=== PATIENT | female | born 1975 | race Caucasian/White ===

== ENCOUNTER 2018-10-30 20:21 | Emergency (ER) | payer OTHER ==
[2018-10-30] MEDS ORDERED: KETOROLAC 30 MG/ML 1 ML VIAL IVP ONE (21:26)
--- NOTE | 2018-10-30 21:26 | ED ---
Chest Pain HPI - General Chief Complaint: Chest Pain Stated Complaint: abnormal EKG Time Seen by Provider: 10/30/18 21:08 Source: patient Mode of arrival: ambulatory Limitations: no limitations - History of Present Illness Initial Comments: May is a 42-year-old female who presents to the emergency department today from urgent care for evaluation of 3 days of left-sided pleuritic chest pain as well as sore throat and a left-sided ankle pain. Patient reports that for about 2 week she's been experiencing a somewhat sore throat, she states at times she feels her throat gets itchy and then she feels the need to clear it. Patient reports this is been happening intermittently for nearly 2 weeks. Patient states nothing makes it better where she has no associated runny nose, cough or congestion. She reports it is not constant. Patient states over the past 3 days she's experienced some sharp stabbing left-sided chest pain that seems to be worse with movement or even inhalation. Pain is not associated with any shortness of breath cough or sputum production. Patient states that today she went to an urgent care at her primary care office, she was seen by nurse practitioner who reported that her EKG had an abnormality on associated come to the ER for further evaluation. Patient has no cardiac history, no family history of early cardiac disease, she is not a smoker, she has no history of hypertension or diabetes. She is here patient also wanted to note that she has left foot pain, patient reports she believes she is suffering from plantar fasciitis that she has tenderness to her heel which has been causing her walk awkwardly. Patient states because that she's been having some cramping in her left calf. Patient denies any history of DVT, PE known clotting disorder she denies any exogenous estrogen use any recent immobilization or long distance travel. Patient hasn't noticed any color changes or swelling to that foot. - Related Data Home Medications Medication Instructions Recorded Confirmed Turmeric Root Extract [Turmeric] 500 mg PO DAILY 06/06/15 10/30/18 Pnv No.95/Ferrous Fum/Folic AC 1 tab PO DAILY 10/30/18 10/30/18 [ Multivitamin Tablet] Allergies Allergy/AdvReac Type Severity Reaction Status Date / Time DYE AdvReac Unknown Uncoded 10/30/18 21:27 Review of Systems ROS Statement: Those systems with pertinent positive or pertinent negative responses have been documented in the HPI. ROS Other: All systems not noted in ROS Statement are negative. EKG Findings - EKG Comments: EKG Findings:: EKG was obtained due to complaining of left-sided chest pain, EKG was obtained at 2041, rate is 80 rhythm is sinus there is normal axis, there are normal intervals, NH 160, QRS 104, QTC is 447 there are no acute ST elevations or depressions are no evidence of acute ischemia or infarction. Past Medical History Additional Past Medical History / Comment(s): Lyme disease History of Any Multi-Drug Resistant Organisms: None Reported Past Surgical History: Appendectomy, Breast Surgery, Cholecystectomy, Hernia R epair, Tonsillectomy Additional Past Surgical History / Comment(s): Abd sx Past Psychological History: Anxiety, Depression, No Psychological Hx Reported Smoking Status: Former smoker Past Alcohol Use History: Occasional Past Drug Use History: Marijuana General Exam - General Exam Comments Initial Comments: Physical Exam GENERAL: Patient is well-developed and well-nourished. Patient is nontoxic and well- hydrated and is in no distress. HENT: Normocephalic, Atraumatic. Normal oropharynx, no obvious posterior oropharyngeal erythema, exudate or sores EYES: PERRL, EOMI PULMONARY: Unlabored respirations. No audible rales rhonchi or wheezing was noted. CARDIOVASCULAR: There is a regular rate and rhythm without any murmurs gallops or rubs. Warm and well perfused extremities, strong DP PT pulses bilaterally Lower extremity edema Homans sign negative ABDOMEN: Soft and nontender with normal bowel sounds. SKIN: Skin is clear with no lesions or rashes and otherwise unremarkable. : Deferred NEUROLOGIC: Patient is alert and oriented x3. Moving all extremities spontaneously MUSCULOSKELETAL: Normal extremities with adequate strength and full range of motion. No lower extremity swelling or edema. No calf tenderness. PSYCHIATRIC: Normal psychiatric evaluation. Limitations: no limitations Course Vital Signs 10/30/18 10/30/18 10/31/18 20:31 22:35 00:46 Temperature 98.4 F 98.6 F Pulse Rate 80 74 80 Respiratory 16 18 18 Rate Blood Pressure 132/98 130/85 180/90 O2 Sat by Pulse 98 98 98 Oximetry Chest Pain MDM - [facility] Patient was seen and evaluated, history is obtained from patient and signed patient seems to have 3 days of pleuritic left-sided chest pain, 2 weeks of a sore throat and she believes to be's partner fasciitis in her left heel Physical exam is unremarkable is mildly overweight female with no risk factors for DVT PE or cardiac disease and signed labs and imaging ordered x-ray and EKG is nonischemic Labs and imaging were ordered Labs and imaging were unremarkable, patient was treated with IV Toradol Upon reevaluation the patient reported the Toradol helped transiently but her pain was returning. I discussed findings with patient, at this time patient had pain constantly for 3 days and her troponin remains negative her EKG is nonischemic her chest x-ray is unremarkable d-dimer is negative. I did offer the patient further imaging with computed tomography scan however patient would like to avoid radiation if possible. Patient somewhat upset that she did not have a definitive diagnosis as to why she is having this discomfort. Again I offered further evaluation but patient does not want any further imaging. His been discussed with the patient that she can be discharged home with outpatient follow-up. Patient then requesting a urinalysis that she also notes that she's had dark urine recently and is concerned she may have a urinary tract infection. Patient states she didn't mention earlier because she assumed reviewed always do a urinalysis on a patient. I advised the patient that we will send her urine to lab however given that she wasn't having symptoms consistent with UTI don't feel she needs to remain in the hospital waiting results of that they are positive I will call her in an antibiotic. I did review the patient's urinalysis which has gross contamination but no evidence of urinary tract infection. Disposition Clinical Impression: Atypical chest pain Disposition: HOME SELF-CARE Condition: Stable Instructions (If sedation given, give patient instructions): Costochondritis (ED) Is patient prescribed a controlled substance at d/c from ED?: No Referrals: Ga Oro MD [Primary Care Provider] - 1-2 days
--- NOTE | 2018-10-30 22:03 | XR ---
EXAM: XR Chest, 2 Views CLINICAL HISTORY: ITS.REASON XR Reason: chest pain TECHNIQUE: Frontal and lateral views of the chest. COMPARISON: No relevant prior studies available. FINDINGS: Lungs: Unremarkable. No consolidation. Pleural space: Unremarkable. No pneumothorax. Heart: Unremarkable. No cardiomegaly. Mediastinum: Unremarkable. Bones/joints: Unremarkable. IMPRESSION: Normal chest x-rays.
[2018-10-30 22:38] LABS: Basophils # (A) 0.1 k/uL (0-0.2); Basophils % (A) 1 %; Eosinophils # (A) 0.4 k/uL (0-0.7); Eosinophils % (A) 6 %; HGB 14.5 gm/dL (11.4-16.0); Lymphocytes # (A) 1.8 k/uL (1.0-4.8); Lymphocytes % (A) 30 %; MCH 32.9 pg (25.0-35.0); MCHC 34.5 g/dL (31.0-37.0); MCV 95.2 fL (80.0-100.0); Mean Platelet Volume 6.7; Monocytes # (A) 0.3 k/uL (0-1.0); Monocytes % (A) 6 %; Neutrophils # (A) 3.4 k/uL (1.3-7.7); Neutrophils % (A) 55 %; Platelet Count 344 k/uL (150-450); RBC 4.41 m/uL (3.80-5.40); RDW 12.6 % (11.5-15.5); WBC 6.1 k/uL (3.8-10.6)
[2018-10-30 22:39] VITALS: RESP 18
[2018-10-30 22:47] LABS: ALT 78 U/L (9-52); AST 111 U/L (14-36); African American GFR (CKD) >90 (>60 ml/min/1.73 sqM); Albumin 4.1 g/dL (3.5-5.0); Alkaline Phosphatase 80 U/L (38-126); Anion Gap 11 mmol/L; Blood Urea Nitrogen 9 mg/dL (7-17); Calcium 8.6 mg/dL (8.4-10.2); Carbon Dioxide 20 mmol/L (22-30); Chloride 107 mmol/L (98-107); Glucose 103 mg/dL (74-99); Magnesium 1.9 mg/dL (1.6-2.3); Non-African American GFR(CKD) >90 (>60 ml/min/1.73 sqM); Potassium 3.6 mmol/L (3.5-5.1); Sodium 138 mmol/L (137-145); Total Bilirubin 0.9 mg/dL (0.2-1.3); Total Protein 6.9 g/dL (6.3-8.2)
[2018-10-30 22:54] LABS: D-Dimer 0.27 mg/L FEU (<0.60); INR 0.9 (<1.2); Partial Thromboplastin Time 24.1 sec (22.0-30.0); Prothrombin Time 10.2 sec (9.0-12.0)
[2018-10-31 00:44] LABS: Amorphous Sediment,Urine Many /hpf; Appearance,Urine Turbid (Clear); Bilirubin,Urine Negative (Negative); Blood,Urine Negative (Negative); Color,Urine Light Brown; Glucose,Urine (UA) Negative (Negative); Ketones,Urine Negative (Negative); Leukocyte Esterase,Urine Trace (Negative); Mucus,Urine Many /hpf; Nitrite,Urine Negative (Negative); PH, Urine 5.5 (5.0-8.0); Protein,Urine Trace (Negative); Specific Gravity,Urine 1.027 (1.001-1.035); Squamous Epithelial Cell,Urine 16 /hpf (0-4); Urobilinogen,Urine <2.0 mg/dL (<2.0)
[2018-10-31 00:52] VITALS: BP 180/90; PULSE 80; TEMP 98.6
== END 2018-10-31 00:52 | disposition home or self-care (01) ==
LOC: EC 20:21
DX: R07.89 Other chest pain (principal); R60.0 Localized edema; J02.9 Acute pharyngitis, unspecified; E66.3 Overweight; M25.572 Pain in left ankle and joints of left foot; M79.672 Pain in left foot; R25.2 Cramp and spasm; Z87.891 Personal history of nicotine dependence; Z91.048 Other nonmedicinal substance allergy status; Z68.33 Body mass index [BMI] 33.0-33.9, adult; Z53.20 Procedure and treatment not carried out because of patient's decision for unspecified reasons
CPT/HCPCS: 36415; 93005; 85379; 80053; 83735; 84484; 85025; 85610; 85730; 81001; 71046; 99284; 96374; J1885

== ENCOUNTER 2019-01-13 15:57 | Inpatient (IN) | payer OTHER ==
[2019-01-13] MEDS ORDERED: SODIUM CHLORIDE 0.9% 1,000 ML IV STA (16:10)
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
[2019-01-13 16:43] LABS: Basophils # (A) 0.1 k/uL (0-0.2); Basophils % (A) 1 %; Eosinophils # (A) 0.2 k/uL (0-0.7); Eosinophils % (A) 3 %; HCT 41.1 % (34.0-46.0); HGB 13.8 gm/dL (11.4-16.0); Lymphocytes # (A) 2.3 k/uL (1.0-4.8); Lymphocytes % (A) 25 %; MCH 32.1 pg (25.0-35.0); MCHC 33.5 g/dL (31.0-37.0); MCV 95.7 fL (80.0-100.0); Mean Platelet Volume 5.8; Monocytes # (A) 0.3 k/uL (0-1.0); Monocytes % (A) 4 %; Neutrophils % (A) 67 %; Platelet Count 455 k/uL (150-450)
[2019-01-13] MEDS ORDERED: DIPH,PERTUS(ACELL)TETVAC-LF 0.5 ML VIAL IM ONE (16:47)
[2019-01-13] MEDS ORDERED: MORPHINE SULFATE 4 MG/ML SYRINGE IVP STA (16:50)
[2019-01-13 16:52] LABS: INR 0.9 (<1.2); Partial Thromboplastin Time 22.2 sec (22.0-30.0); Prothrombin Time 9.8 sec (9.0-12.0)
[2019-01-13 16:57] LABS: ALT 54 U/L (9-52); AST 65 U/L (14-36); African American GFR (CKD) >90 (>60 ml/min/1.73 sqM); Albumin 4.4 g/dL (3.5-5.0); Alcohol 61 mg/dL; Alkaline Phosphatase 74 U/L (38-126); Anion Gap 15 mmol/L; Blood Urea Nitrogen 13 mg/dL (7-17); Calcium 9.3 mg/dL (8.4-10.2); Carbon Dioxide 16 mmol/L (22-30); Chloride 105 mmol/L (98-107); Glucose 124 mg/dL (74-99); Non-African American GFR(CKD) >90 (>60 ml/min/1.73 sqM); Potassium 3.2 mmol/L (3.5-5.1); Sodium 136 mmol/L (137-145); Total Bilirubin 0.4 mg/dL (0.2-1.3); Total Protein 7.2 g/dL (6.3-8.2)
[2019-01-13 17:39] LABS: Appearance,Urine Clear (Clear); Bilirubin,Urine Negative (Negative); Blood,Urine Small (Negative); Color,Urine Yellow; Glucose,Urine (UA) Negative (Negative); Hyaline Casts,Urine 10 /lpf (0-2); Ketones,Urine Negative (Negative); Leukocyte Esterase,Urine Negative (Negative); Mucus,Urine Rare /hpf; Nitrite,Urine Negative (Negative); Protein,Urine Trace (Negative); RBC,Urine 17 /hpf (0-5); Specific Gravity,Urine 1.011 (1.001-1.035); Urobilinogen,Urine <2.0 mg/dL (<2.0); WBC,Urine 1 /hpf (0-5)
[2019-01-13 17:46] LABS: Amphetamine Screen,Urine Not Detected (NotDetected); Barbiturate Screen,Urine Not Detected (NotDetected); Benzodiazepines Screen,Urine Not Detected (NotDetected); Cocaine Screen,Urine Not Detected (NotDetected); Methadone Screen, Urine Not Detected (NotDetected); Opiate Screen,Urine Not Detected (NotDetected); Oxycodone Screen, Urine Not Detected (NotDetected); Phencyclidine Screen,Urine Not Detected (NotDetected); Tricyclic Antidepressant,Urine Not Detected (NotDetected); Urn Cannabinoid Scrn Detected (NotDetected)
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
[2019-01-13] MEDS ORDERED: HYDROmorphone 1 MG/ML 1 ML SYRINGE IVP STA (18:12)
[2019-01-13] MEDS ORDERED: KETOROLAC 30 MG/ML 1 ML VIAL IVP STA (18:12)
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
[2019-01-13] MEDS ORDERED: NALOXONE 0.4 MG/ML 1 ML VIAL IV PRN (19:02)
[2019-01-13] MEDS ORDERED: ACETAMINOPHEN TAB 325 MG TAB PO PRN (19:02)
[2019-01-13] MEDS ORDERED: KETOROLAC 30 MG/ML 1 ML VIAL IVP PRN (19:02)
[2019-01-13] MEDS ORDERED: IBUPROFEN 400 MG TAB PO PRN (19:02)
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
[2019-01-13] MEDS ORDERED: SODIUM CHLORIDE 0.9% 1,000 ML IV SCH (19:15)
[2019-01-13] MEDS ORDERED: SODIUM CHLORIDE 0.9% 2,000 ML IV ONE (20:49)
[2019-01-13] MEDS ORDERED: 0.9% NACL WITH KCL 40 MEQ/L 1,000 ML IV ONE (21:30)
[2019-01-13] MEDS ORDERED: SODIUM CHLORIDE 0.9% 1,000 ML with POTASSIUM CHLORIDE 40 MEQ IV SCH ×2 (21:30)
[2019-01-13] MEDS: HYDROmorphone 1 MG/ML 1 ML SYRINGE IVP PRN (21:32)
[2019-01-13] MEDS: KETOROLAC 30 MG/ML 1 ML VIAL IVP SCH (23:37)
[2019-01-14] MEDS: HYDROmorphone 1 MG/ML 1 ML SYRINGE IVP PRN ×6 (00:50→19:52)
[2019-01-14] MEDS: KETOROLAC 30 MG/ML 1 ML VIAL IVP SCH ×4 (05:55→23:16)
[2019-01-14] MEDS ORDERED: PANTOPRAZOLE 40 MG/10 ML VIAL IV SCH (09:00)
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
[2019-01-14] MEDS: HEPARIN SODIUM,PORCINE 5,000 UNIT/ML 1 ML VIAL SQ SCH ×2 (15:56→23:16)
[2019-01-14] MEDS: HYDROcodone/APAP 5-325MG 1 EACH TAB PO PRN ×2 (18:04→23:29)
--- NOTE | 2019-01-14 18:30 | XR ---
EXAMINATION TYPE: XR clavicle LT DATE OF EXAM: 01/14/2019 COMPARISON: NONE HISTORY: Pain TECHNIQUE: 2 views FINDINGS: I see no fracture nor dislocation. The clavicle is intact. Joint spaces appear normal. IMPRESSION: Negative left clavicle exam.
--- NOTE | 2019-01-14 18:48 | XR ---
EXAMINATION TYPE: XR shoulder limited LT DATE OF EXAM: 01/14/2019 COMPARISON: NONE HISTORY: Pain TECHNIQUE: 3 views FINDINGS: I see no fracture nor dislocation. Joint spaces are normal. There are no pathologic calcifi cations. IMPRESSION: Negative left shoulder exam
[2019-01-14] MEDS: FAMOTIDINE 20 MG/2 ML VIAL IV SCH (19:56)
[2019-01-15] MEDS: HYDROmorphone 1 MG/ML 1 ML SYRINGE IVP PRN ×7 (00:30→23:00)
[2019-01-15] MEDS: KETOROLAC 30 MG/ML 1 ML VIAL IVP SCH ×3 (05:30→17:59)
[2019-01-15] MEDS: FAMOTIDINE 20 MG/2 ML VIAL IV SCH (07:45)
[2019-01-15] MEDS: HYDROcodone/APAP 5-325MG 1 EACH TAB PO PRN ×4 (07:46→20:41)
[2019-01-15] MEDS: PANTOPRAZOLE 40 MG TABLET PO SCH (07:48)
[2019-01-15] MEDS: HEPARIN SODIUM,PORCINE 5,000 UNIT/ML 1 ML VIAL SQ SCH ×2 (07:48→16:55)
--- NOTE | 2019-01-15 07:59 | ECHOF ---
Referral Reason:fractured sternum MEASUREMENTS -------- HEIGHT: 162.6 cm WEIGHT: 91.6 kg BP: RVIDd: 4.5 cm (< 3.3) IVSd: 1.5 cm (0.6 - 1.1) LVIDd: 3.8 cm (3.9 - 5.3) LVPWd: 1.5 cm (0.6 - 1.1) IVSs: 2.0 cm LVIDs: 2.2 cm LVPWs: 1.9 cm LAESV Index (A-L): 23.95 ml/m Ao Diam: 3.7 cm (2.0 - 3.7) AV Cusp: 2.4 cm (1.5 - 2.6) MV EXCURSION: 13.883 mm (> 18.000) MV EF SLOPE: 132 mm/s (70 - 150) EPSS: 0.3 cm MV E Kenneth: 0.85 m/s MV DecT: 153 ms MV A Kenneth: 0.90 m/s MV E/A Ratio: 0.94 RAP: 5.00 mmHg RVSP: 26.58 mmHg FINDINGS -------- Sinus rhythm. This was a technically good study. The left ventricular size is normal. There is moderate concentric left ventricular hypertrophy. O verall left ventricular systolic function is normal with, an EF between 60 - 65 %. The diastolic fi lling pattern is normal for the age of the patient 7.47. The right ventricle is mildly enlarged. Normal LA size by volume 22+/-6 ml/m2. The right atrial size is normal. Interatrial and interventricular septum intact. The aortic valve is trileaflet and appears structurally normal. There is no evidence of aortic regu rgitation. There is no evidence of aortic stenosis. The mitral valve is normal. There is trace mitral regurgitation. Mild tricuspid regurgitation present. There is mild pulmonary hypertension. The right ventricular systolic pressure, as measured by Doppler, is 26.58mmHg. There is no pulmonic regurgitation present. 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 Normal inferior vena cava with normal inspiratory collapse consistent with estimated right atrial pre ssure of 5 mmHg. There is no pericardial effusion. CONCLUSIONS -------- 1. Sinus rhythm. 2. This was a technically good study. 3. The left ventricular size is normal. 4. There is moderate concentric left ventricular hypertrophy. 5. Overall left ventricular systolic function is normal with, an EF between 60 - 65 %. 6. The diastolic filling pattern is normal for the age of the patient 7.47 7. The right ventricle is mildly enlarged. 8. Normal LA size by volume 22+/-6 ml/m2. 9. The right atrial size is normal. 10. Interatrial and interventricular septum intact. 11. The aortic valve is trileaflet and appears structurally normal. 12. There is no evidence of aortic regurgitation. 13. There is no evidence of aortic stenosis. 14. The mitral valve is normal. 15. There is trace mitral regurgitation. 16. Mild tricuspid regurgitation present. 17. There is mild pulmonary hypertension. 18. The right ventricular systolic pressure, as measured by Doppler, is 26.58mmHg. 19. There is no pulmonic regurgitation present. 20. 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 21. Normal inferior vena cava with normal inspiratory collapse consistent with estimated right atrial pressure of 5 mmHg. 22. There is no pericardial effusion. CONTINUOUS VULCANIZING MACHINE OPERATOR: Tammy Cornell RDCS
[2019-01-15 08:22] LABS: Basophils % (A) 0 %; Eosinophils # (A) 0.2 k/uL (0-0.7); Eosinophils % (A) 3 %; HGB 11.8 gm/dL (11.4-16.0); Lymphocytes % (A) 17 %; MCH 33.3 pg (25.0-35.0); MCHC 34.8 g/dL (31.0-37.0); MCV 95.7 fL (80.0-100.0); Mean Platelet Volume 5.4; Monocytes # (A) 0.2 k/uL (0-1.0); Monocytes % (A) 3 %; Neutrophils # (A) 4.3 k/uL (1.3-7.7); Neutrophils % (A) 75 %; Platelet Count 326 k/uL (150-450); RBC 3.55 m/uL (3.80-5.40); RDW 12.5 % (11.5-15.5); WBC 5.7 k/uL (3.8-10.6)
[2019-01-15 08:32] LABS: ALT 79 U/L (9-52); AST 134 U/L (14-36); African American GFR (CKD) >90 (>60 ml/min/1.73 sqM); Albumin 3.3 g/dL (3.5-5.0); Alkaline Phosphatase 77 U/L (38-126); Anion Gap 7 mmol/L; Blood Urea Nitrogen 5 mg/dL (7-17); Calcium 8.3 mg/dL (8.4-10.2); Carbon Dioxide 24 mmol/L (22-30); Chloride 107 mmol/L (98-107); Glucose 96 mg/dL (74-99); Non-African American GFR(CKD) >90 (>60 ml/min/1.73 sqM); Sodium 138 mmol/L (137-145); Total Bilirubin 0.6 mg/dL (0.2-1.3)
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
[2019-01-15] MEDS: FAMOTIDINE 20 MG TAB PO SCH (20:41)
[2019-01-16] MEDS: KETOROLAC 30 MG/ML 1 ML VIAL IVP SCH ×5 (00:52→23:36)
[2019-01-16] MEDS: HEPARIN SODIUM,PORCINE 5,000 UNIT/ML 1 ML VIAL SQ SCH ×4 (00:52→23:35)
[2019-01-16] MEDS: HYDROcodone/APAP 5-325MG 1 EACH TAB PO PRN ×5 (01:42→21:19)
[2019-01-16] MEDS: HYDROmorphone 1 MG/ML 1 ML SYRINGE IVP PRN ×5 (03:23→23:38)
[2019-01-16] MEDS: PANTOPRAZOLE 40 MG TABLET PO SCH (07:33)
[2019-01-16] MEDS: FAMOTIDINE 20 MG TAB PO SCH ×2 (07:33→19:34)
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
[2019-01-17 02:09] VITALS: RESP 17
[2019-01-17] MEDS: HYDROcodone/APAP 5-325MG 1 EACH TAB PO PRN ×3 (04:34→13:50)
[2019-01-17] MEDS: KETOROLAC 30 MG/ML 1 ML VIAL IVP SCH ×2 (05:21→11:48)
[2019-01-17] MEDS: HYDROmorphone 1 MG/ML 1 ML SYRINGE IVP PRN (08:05)
[2019-01-17] MEDS: HEPARIN SODIUM,PORCINE 5,000 UNIT/ML 1 ML VIAL SQ SCH (08:07)
[2019-01-17] MEDS: PANTOPRAZOLE 40 MG TABLET PO SCH (08:07)
[2019-01-17] MEDS: FAMOTIDINE 20 MG TAB PO SCH (08:07)
--- NOTE | 2019-01-17 10:38 | P.PN ---
Subjective Progress Note Date: 01/17/19 Principal diagnosis: Sternal fracture History the patient was planning discharge however her pain became more severe and she was kept overnight. Today she says she is having more issues moving her left shoulder joint. She is also complaining of numbness which is new in the left brachial region. Denies neck pain. Says her chest pain is gradually improving. She is afebrile. She still wants to go home today. Objective - Vital Signs Vital signs: Vital Signs Temp 97.5 F L 01/17/19 07:00 Pulse 73 01/17/19 08:15 Resp 17 01/17/19 07:00 BP 125/87 01/17/19 08:15 Pulse Ox 95 01/17/19 07:00 Intake & Output 01/16/19 01/17/19 01/17/19 18:59 06:59 18:59 Intake Total 400 300 Balance 400 300 Intake: Oral 400 300 Other: Voiding Method Toilet Toilet # Voids 2 1 - Exam Pain with passive range of motion left shoulder, decreased sensation skin over brachial region, 2+ radial pulse, chest tenderness improved - Labs CBC & Chem 7: 01/15/19 07:23 01/15/19 07:23 Assessment and Plan (1) Sternal fracture Narrative/Plan: Patient with increased discomfort left shoulder. Now complaining of numbness in that region as well. No numbness on the right upper or lower extremity and no numbness in the lower extremity on the left-hand side. We'll consult orthopedics to evaluate today. Hold discharge. Current Visit: Yes Status: Acute Code(s): S22.20XA - UNSP FRACTURE OF STERNUM, INIT ENCNTR FOR CLOSED FRACTURE SNOMED Code(s): 22089846
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
[2019-01-17 16:12] VITALS: BP 139/93; PULSE 79; TEMP 98
== END 2019-01-17 15:51 | disposition home or self-care (01) | DRG 566 ==
LOC: EC 15:57 → 4SSUR 18:40 → OBSVTOIN 01-15 12:43
PROVIDERS: ADMIT Surgery Plastic and Reconstructive Surgery; ATTEND Surgery Plastic and Reconstructive Surgery
DX: S22.20XA Unspecified fracture of sternum, initial encounter for closed fracture (principal); S46.912A Strain of unspecified muscle, fascia and tendon at shoulder and upper arm level, left arm, initial encounter; S20.319A Abrasion of unspecified front wall of thorax, initial encounter; I71.2 Thoracic aortic aneurysm, without rupture; I10 Essential (primary) hypertension; F41.9 Anxiety disorder, unspecified; F32.9 Major depressive disorder, single episode, unspecified; E66.9 Obesity, unspecified; S80.02XA Contusion of left knee, initial encounter; Y90.3 Blood alcohol level of 60-79 mg/100 ml; V48.5XXA Car driver injured in noncollision transport accident in traffic accident, initial encounter; Y92.410 Unspecified street and highway as the place of occurrence of the external cause; Z82.49 Family history of ischemic heart disease and other diseases of the circulatory system; Z87.891 Personal history of nicotine dependence; Z91.048 Other nonmedicinal substance allergy status; Z90.49 Acquired absence of other specified parts of digestive tract; Z98.890 Other specified postprocedural states; Z90.89 Acquired absence of other organs
CPT/HCPCS: 36415; 70450; 71045; 71260; 72125; 72170; 74177; 80053; 80306; 80320; 81001; 84484; 85025; 85610; 85730; 86850; 86900; 86901; 90471; 90715; 93005; 93306; 96361; 96374; 96375; 99285

== ENCOUNTER 2023-08-01 21:40 | Emergency (ER) | payer OTHER ==
--- NOTE | 2023-08-01 22:27 | ED ---
Lower Extremity Injury HPI - General Source: patient, RN notes reviewed Mode of arrival: ambulatory Limitations: no limitations <Mirta Perez - Last Filed: 08/01/23 22:27> - History of Present Illness MD Complaint: knee injury Onset/Timin -: days(s) Injury: Knee: Left Place: street/outdoors Severity: severe Improves With: immobilization Worsens With: weight bearing, movement Context: running Associated Symptoms: snap/pop sensation, swelling Treatments Prior to Arrival: cold therapy <Tristin Gilman - Last Filed: 08/24/23 13:46> - General Chief Complaint: Extremity Injury, Lower Stated Complaint: L Knee Injury Time Seen by Provider: 08/01/23 21:58 - History of Present Illness Initial Comments: Patient is a 47-year-old woman complaining of left knee pain. She indicates the anteromedial aspect at the joint line. She states she was playing kickball and felt a pop when the injury occurred. She states that she went to [facility] this morning where they did x-rays but told her that there was no evident injury and she needed an MRI. Patient states she continues to have pain she was hoping to have the MRI performed (Tristin Gilman) - Related Data Home Medications Medication Instructions Recorded Confirmed Turmeric Root Extract [Turmeric] 500 mg PO BID 06/06/15 01/13/19 Pnv No.95/Ferrous Fum/Folic AC 1 tab PO BID 10/30/18 01/13/19 [ Multivitamin Tablet] Milk Thistle 150 mg PO BID 01/13/19 01/13/19 Previous Rx's Medication Instructions Recorded HYDROcodone/APAP 5-325MG [Avon 1 tab PO Q4HR PRN 3 Days #18 tab 01/17/19 5-325] HYDROcodone/APAP 5-325MG [Avon 1 tab PO Q4HR PRN 3 Days #18 tab 08/02/23 5-325] Allergies Allergy/AdvReac Type Severity Reaction Status Date / Time FOOD COLORING DYE AdvReac ANXIETY Uncoded 08/01/23 22:17 Review of Systems ROS Other: All systems not noted in ROS Statement are negative. <Mirta Perez - Last Filed: 08/01/23 22:27> ROS Other: All systems not noted in ROS Statement are negative. Constitutional: Denies: fever, weakness Respiratory: Denies: dyspnea Cardiovascular: Denies: chest pain Musculoskeletal: Reports: as per HPI, joint swelling, arthralgia Skin: Denies: lesions Neurological: Denies: weakness, numbness <Tristin Gilman - Last Filed: 08/24/23 13:46> ROS Statement: Those systems with pertinent positive or pertinent negative responses have been documented in the HPI. Past Medical History Past Medical History: Hypertension Additional Past Medical History / Comment(s): Lyme disease History of Any Multi-Drug Resistant Organisms: None Reported Past Surgical History: Appendectomy, Breast Surgery, Cholecystectomy, Hernia Repair, Tonsillectomy Additional Past Surgical History / Comment(s): Abd sx, liver lac repair Past Anesthesia/Blood Transfusion Reactions: No Reported Reaction Past Psychological History: Anxiety, Depression Past Alcohol Use History: Occasional Past Drug Use History: Marijuana - Past Family History Mother Family Medical History: Hyperlipidemia, Hypertension Father Family Medical History: Cancer (Prostate) <Mirta Perez - Last Filed: 08/01/23 22:27> General Exam Limitations: no limitations <Mirta Perez - Last Filed: 08/01/23 22:27> Limitations: no limitations General appearance: alert, in no apparent distress Head exam: Present: atraumatic, normocephalic Respiratory exam: Present: normal lung sounds bilaterally. Absent: respiratory distress, wheezes, rales, rhonchi, stridor, accessory muscle use Cardiovascular Exam: Present: regular rate, normal rhythm, normal heart sounds, other (Skin normal strength dorsalis pedis pulses). Absent: systolic murmur, diastolic murmur, rubs, gallop Extremities exam: Present: tenderness, normal capillary refill, other (Some mild tenderness to palpation along the anteromedial joint line. There may be trace effusion. No obvious deformity. Range of motion the patient is able to nearly fully extend the knee, probably to 15 degrees and is able to flex to approximately 75 degrees). Absent: pedal edema Neurological exam: Present: alert. Absent: motor sensory deficit Skin exam: Present: warm, dry, intact, normal color. Absent: rash <Tristin Gilman - Last Filed: 08/24/23 13:46> Course Vital Signs 08/01/23 08/02/23 22:05 00:23 Temperature 98.1 F 97.9 F Pulse Rate 90 87 Respiratory 20 18 Rate Blood Pressure 145/105 138/72 O2 Sat by Pulse 99 99 Oximetry Medical Decision Making <Tristin Gilman - Last Filed: 08/24/23 13:46> - Medical Decision Making Was pt. sent in by a medical professional or institution (, PA, PROTOTYPE TECHNICIAN, urgent care, hospital, or shelter...) When possible be specific @ -[No] Did you speak to anyone other than the patient for history (EMS, parent, family, police, friend...)? What history was obtained from this source @ -[No] Did you review nursing and triage notes (agree or disagree)? Why? @ -[I reviewed and agree with nursing and triage notes] Were old charts reviewed (outside hosp., previous admission, EMS record, old EKG, old radiological studies, urgent care reports/EKG's, shelter records)? Report findings @ -[No old charts were reviewed] Differential Diagnosis (chest pain, altered mental status, abdominal pain women, abdominal pain men, vaginal bleeding, weakness, fever, dyspnea, syncope, head ache, dizziness, GI bleed, back pain, seizure, CVA, palpatations, mental health, musculoskeletal)? @ -[Differential Musculoskeletal Muscular strain, contusion, ligament sprain, fracture, arthritis, septic arthritis, bursitis, cellulitis, muscle spasm, nerve compression, DVT, arterial occlusion, herpes zoster, electrolyte abnormality, tumor.... This is not meant to be in all inclusive list EKG interpreted by me (3pts min.). @ -[As above] X-rays interpreted by me (1pt min.). @ -[None done] CT interpreted by me (1pt min.). @ -[None done] U/S interpreted by me (1pt. min.). @ -[None done] What testing was considered but not performed or refused? (CT, X-rays, U/S, labs)? Why? @ -[None] What meds were considered but not given or refused? Why? @ -[None] Did you discuss the management of the patient with other professionals (professionals i.e. , MIRZA, PROTOTYPE TECHNICIAN, lab, RT, psych nurse, licensed social worker, solar field service technician, teacher, inshore undersea warfare officer, patient case coordinator)? Give summary @ -[No] Was smoking cessation discussed for >3mins.? @ -[No] Was critical care preformed (if so, how long)? @ -[No] Were there social determinants of health that impacted care today? How? (Homelessness, low income, unemployed, alcoholism, drug addiction, transportation, low edu. Level, literacy, decrease access to med. care, assisted, rehab)? @ -[No] Was there de-escalation of care discussed even if they declined (Discuss DNR or withdrawal of care, Hospice)? DNR status @ -[No] What co-morbidities impacted this encounter? (DM, HTN, Smoking, COPD, CAD, Cancer, CVA, ARF, Chemo, Hep., AIDS, mental health diagnosis, sleep apnea, m orbid obesity)? @ -[None] Was patient admitted / discharged? Hospital course, mention meds given and route, prescriptions, significant lab abnormalities, going to OR and other pertinent info. @ -[Discussed with patient that MRI not available at this hour, and also that initial treatment would be conservative with follow-up to MRI if no improvement or if there is evidence of problem requiring MRI. Patient was discouraged because she was advised over the phone that she could come and have an MRI if she presented to the emergency and I did apologize that she had been given faulty information Undiagnosed new problem with uncertain prognosis? @ -[No] Drug Therapy requiring intensive monitoring for toxicity (Heparin, Nitro, Insulin, Cardizem)? @ -[No] Were any procedures done? @ -[No] Diagnosis/symptom? @ -[Acute knee sprain Acute, or Chronic, or Acute on Chronic? @ -[Acute Uncomplicated (without systemic symptoms) or Complicated (systemic symptoms)? @ -[Uncomplicated Side effects of treatment? @ -[No] Exacerbation, Progression, or Severe Exacerbation? @ -[No] Poses a threat to life or bodily function? How? (Chest pain, USA, MS, pneumonia, PE, COPD, DKA, ARF, appy, cholecystitis, CVA, Diverticulitis, Homicidal, Suicidal, threat to staff... and all critical care pts) @ -[No] (Tristin Gilman) Disposition <Mirta Perez - Last Filed: 08/01/23 22:27> Is patient prescribed a controlled substance at d/c from ED?: No <Tristin Gilman - Last Filed: 08/24/23 13:46> Clinical Impression: Left knee sprain Disposition: HOME SELF-CARE Condition: Good Instructions (If sedation given, give patient instructions): Knee Sprain (ED) Prescriptions: HYDROcodone/APAP 5-325MG [Avon 5-325] 1 tab PO Q4HR PRN 3 Days #18 tab PRN Reason: Pain Referrals: None,Stated [Primary Care Provider] - 1-2 days Malik Romero MD [Medical Doctor] - 1-2 days
[2023-08-01] MEDS: IBUPROFEN 400 MG TAB PO STA (23:25)
[2023-08-02] MEDS: ACET/COD 300 MG/30 MG STARTER PACK 6 TAB BTL PO STA (00:18)
[2023-08-02 00:26] VITALS: BP 138/72; PULSE 87; RESP 18; TEMP 97.9
== END 2023-08-02 00:26 | disposition home or self-care (01) ==
LOC: EC 21:40
DX: S83.92XA Sprain of unspecified site of left knee, initial encounter (principal); Z91.041 Radiographic dye allergy status; X50.1XXA Overexertion from prolonged static or awkward postures, initial encounter; Y93.6A Activity, physical games generally associated with school recess, summer camp and children
CPT/HCPCS: 99283; L1830